=== PATIENT | male | born 1980 | race Two or more races ===

== ENCOUNTER 2018-05-31 20:50 | Emergency (ER) | payer OTHER ==
[~2018-05-31] VITALS: Ht 180.3 cm; Wt 93.0 kg
[2018-05-31 21:02] VITALS: BP 146/86
[2018-06-01] MEDS ORDERED: FLUORESCEIN SOD 1 MG TEST STRIP EACHEYE ONE (01:00)
[2018-06-01] MEDS ORDERED: TETRACAINE HCL 0.5% OPTH(EYE) SOLN 4ML EACHEYE ONE (01:00)
== END 2018-06-01 01:06 | disposition left against medical advice (07) ==
LOC: ER 20:50
DX: H57.12 Ocular pain, left eye (principal); Z53.21 Procedure and treatment not carried out due to patient leaving prior to being seen by health care provider